=== PATIENT | female | born 1985 | race Caucasian/White ===

== ENCOUNTER 2017-08-21 12:20 | Observation (INO) | payer BC, OTHER, SELFPAY ==
[~2017-08-21] VITALS: Ht 160 cm; Wt 117.9 kg
[2017-08-21] MEDS ORDERED: DEMEROL IM STA ×2 (13:04→16:20)
[2017-08-21] MEDS ORDERED: ZOFRAN ODT SL STA (13:04)
[2017-08-21] MEDS ORDERED: ZOFRAN ODT ONE (13:18)
[2017-08-21] MEDS ORDERED: DEMEROL ONE (13:19)
[2017-08-21 14:16] LABS: BILIRUBIN,URINE NEGATIVE (NEGATIVE); UROBILINOGEN,URINE NORMAL (NEGATIVE)
[2017-08-21 14:18] LABS: APPEARANCE,URINE CLEAR (CLEAR); UA COLOR YELLOW (YELLOW)
[2017-08-21 14:29] LABS: BASOPHIL # 0.1 10^3/uL (0.0-0.1); BASOPHIL % 0.4 % (0.0-0.2); EOSINOPHIL # 0.2 10^3/uL (0.0-0.2); HEMOGLOBIN 13.6 g/dL (12.0-15.0); LYMPHOCYTES # 3.2 10^3/uL (1.0-4.8); MEAN CELL HGB CONCENTRATION 32.5 g/dL (33-37); MEAN CORP VOLUME 86.4 fL (78-100); MEAN PLATELET VOLUME 8.2 fL (7.8-11.0); MONOCYTES # 1.1 10^3/uL (0.3-0.8); MONOCYTES % 6.9 % (5.0-12.0); NEUTROPHIL # 10.8 10^3/uL (1.8-7.7); NEUTROPHILS % 70.2 % (41.0-85.0); WHITE BLOOD CELL 15.3 10^3/uL (4.5-11.0)
--- NOTE | 2017-08-21 17:58 | NUR ---
Dr. Valentina Montgomery is at patient bedside
[2017-08-21] MEDS ORDERED: TORADOL IM STA (18:15)
[2017-08-21] MEDS ORDERED: PHENERGAN PO PRN (18:30)
[2017-08-21] MEDS ORDERED: AMBIEN PO PRN (18:30)
[2017-08-21] MEDS ORDERED: MILK OF MAGNESIA PO PRN (18:30)
[2017-08-21] MEDS ORDERED: ZOFRAN ODT SL PRN (18:30)
[2017-08-21] MEDS ORDERED: NORCO 7.5MG PO PRN ×2 (18:30)
[2017-08-21] MEDS ORDERED: DEMEROL IV PRN (18:30)
[2017-08-21] MEDS ORDERED: PHENERGAN IV PRN (18:30)
[2017-08-21] MEDS ORDERED: ZOFRAN IV PRN (18:30)
--- NOTE | 2017-08-21 18:30 | ER.PDOC ---
General Chief Complaint: Lower Back Pain or Injury Stated Complaint: BACK INJURY Time seen by MD: 18:15 Source: patient Exam Limitations: no limitations History of Present Illness Problems: (1) 6 weeks gestation of ICD Code: Z3A.01 - Less than 8 weeks gestation of SNOMED: 76623731 (2) Lower back pain Onset Date: ~ 08/21/2017 Status: Acute ICD Code: M54.5 - Low back pain SNOMED: 401395707 (3) Pre-existing hypertension affecting in first trimester ICD Code: O10.911 - Unspecified pre-existing hypertension complicating , first trimester SNOMED: 94240711, 82015096, 462304046 Allergies: Coded Allergies: No Known Allergies (Unverified , 08/21/17) Vital Signs First Vital Signs Date Time Temp Pulse Resp B/P (MAP) Pulse Ox O2 Delivery O2 Flow Rate FiO2 08/21/17 12:56 98.2 106 18 99 08/21/17 12:59 161/104 (123) Last Vital Signs Date Time Temp Pulse Resp B/P (MAP) Pulse Ox O2 Delivery O2 Flow Rate FiO2 08/21/17 17:01 98.4 75 20 125/75 (92) 96 Past Medical History Medical History: hypertension (Not currently taking her HCTZ 50mg's PO QD X approx 2 weeks) Surgical History: no surgical history LMP (females 10-50): Social History Smoking: non-smoker Drug Use: marijuana Physical Exam General Appearance: No Apparent Distress Respiratory: lungs clear Cardiovascular: Regular Rate, Rhythm Gastrointestinal: Other Back: No CVA Tenderness Extremities: Normal Range of Motion, Non-Tender Results/Orders Results/Orders Laboratory Tests Test 08/21/17 14:10 08/21/17 14:30 White Blood Count 15.3 10^3/uL (4.5-11.0) Red Blood Count 4.85 10^6/uL (4.00-5.20) Hemoglobin 13.6 g/dL (12.0-15.0) Hematocrit 41.9 % (36.0-46.0) Mean Corpuscular Volume 86.4 fL (78-100) Mean Corpuscular Hemoglobin 28.0 pg (26-34) Mean Corpuscular Hemoglobin Concent 32.5 g/dL (33-37) Red Cell Distribution Width 14.0 % (11.5-14.5) Platelet Count 431 10^3/uL (150-400) Mean Platelet Volume 8.2 fL (7.8-11.0) Neutrophils (%) (Auto) 70.2 % (41.0-85.0) Lymphocytes (%) (Auto) 21.0 % (24.0-44.0) Monocytes (%) (Auto) 6.9 % (5.0-12.0) Neutrophils # (Auto) 10.8 10^3/uL (1.8-7.7) Lymphocytes # (Auto) 3.2 10^3/uL (1.0-4.8) Monocytes # (Auto) 1.1 10^3/uL (0.3-0.8) Absolute Immature Granulocyte (auto 0.07 10^3 u/L (0-2) Eosinophils % 1.0 % (0.0-5.0) Basophils % 0.4 % (0.0-0.2) Basophils # 0.1 10^3/uL (0.0-0.1) Eosinophil Count 0.2 10^3/uL (0.0-0.2) Urine Collection Type VOID Urine Color YELLOW (YELLOW) Urine Appearance CLEAR (CLEAR) Urine Bilirubin NEGATIVE MG/DL (NEGATIVE) Urine Ketones NEGATIVE (NEGATIVE) Urine Specific [place] 1.010 (1.005-1.035) Urine pH 6 (5.0-6.0) Urine Protein NEGATIVE (NEGATIVE) Urine Urobilinogen NORMAL (NEGATIVE) Urine Nitrate NEGATIVE (NEGATIVE) Urine Leukocyte Esterase NEGATIVE (NEGATIVE) Urine Blood NEGATIVE (NEGATIVE) Urine Glucose NORMAL (NEGATIVE) Percent Immature Gran (Cell Imm) 0.50 % (0.00-0.50) Prothrombin Time 10.7 SEC (9.8-11.9) Prothrombin Time INR (Non-Therap) 1.0 Activated Partial Thromboplast Time 23.8 SEC (24.67-30.72) Sodium Level 137 mmol/L (132-145) Potassium Level 3.7 mmol/L (3.6-5.2) Chloride Level 106.0 mmol/L (96-109) Carbon Dioxide Level 23.0 mmol/L (20.0-32) Anion Gap 11.7 Blood Urea Nitrogen 9 mg/dL (7-18) Creatinine 0.80 mg/dL (0.59-1.40) Estimated GFR () 100.0 (>/=60) BUN/Creatinine Ratio 11.0 Glucose Level 93 mg/dL (70-110) Calcium Level 9.0 mg/dL (8.4-10.5) Total Bilirubin 0.5 mg/dL (0.2-1.0) Aspartate Amino Transf (AST/SGOT) 12 U/L (0-35) Alanine Aminotransferase (ALT/SGPT) 19 U/L (12-78) Alkaline Phosphatase 64 U/L (50-136) Total Protein 7.2 g/dL (6.4-8.2) Albumin 3.6 g/dL (3.4-5.0) Globulin 3.6 Human Chorionic Gonadotropin, Quant 4585 mIU/mL Administered Medications Medications (Trade) Dose Ordered Sig/Faiza Route PRN Reason Start Time Stop Time Status Last Admin Dose Admin Meperidine HCl (Demerol) 100 mg STAT STAT IM 08/21/17 13:04 08/21/17 13:05 DC 08/21/17 13:25 Ondansetron HCl (Zofran Odt) 4 mg STAT STAT SL 08/21/17 13:04 08/21/17 13:05 DC 08/21/17 13:25 Meperidine HCl (Demerol) 50 mg STAT STAT IM 08/21/17 16:20 08/21/17 16:21 DC 08/21/17 16:50 Course Blood Pressure Systolic: 125 Blood Pressure Diastolic: 75 Blood Pressure Mean: 92 Departure Time of Disposition: 18:30 Disposition: 09 ADMITTED INPATIENT Impression: Primary Impression: Low back pain Condition: Stable Referrals: PCP,UNKNOWN (PCP) PRIMARY CARE PROVIDER Comments Pt will be admitted as an OBS patient. We will observe her BPs overnight as well. Duration or Time Spent with Pa: 15 mins PELON MAYES MD Aug 21, 2017 18:30
[2017-08-21] MEDS ORDERED: TORADOL ONE (19:13)
--- NOTE | 2017-08-21 20:30 | NUR ---
This RN to ER to bring patient to floor. Report received. Patient transferred to room 325. States with a LMP of 07/09/17. States she is "6 weeks ". Denies any abdominal cramping or any bleeding. States back pain began around 1200 today and has not let up. Describes pain as "Sharp and it moves across my whole entire back. It feels like I pulled a muscle and only worsens when moving". Denies any drug use. States is an "occasional smoker that smokes maybe 3 cigarettes per day". States a hx of possible chtn and has recently stopped taking a "water pill to take of fluid". Pt unsure of name of medication. Denies any other home medications. Assisted to bathroom to change into gown. Assisted to bed.
--- NOTE | 2017-08-21 21:30 | NUR ---
IV covered and taped up. Patient assisted to shower at this time. Education regarding emergency call cord and to call out for assistance if needed. Pt verbalized understanding.
--- NOTE | 2017-08-21 22:43 | NUR ---
Plan of care initiated and reviewed with patient and family. Verbalized understanding.
[2017-08-21] MEDS ORDERED: AMBIEN ONE (23:00)
--- NOTE | 2017-08-21 23:00 | NUR ---
Patient states "My pain is better. I am just ready to go to sleep. Ambian given to patient at this time per request. Denies any other needs.
--- NOTE | 2017-08-22 00:14 | NUR ---
Patient in bed with eyes closed. RR even and unlabored. Call light within reach. No distress noted at this time.
--- NOTE | 2017-08-22 03:13 | NUR ---
Patient in bed with eyes closed. RR even and unlabored. Call light within reach.
[2017-08-22 05:21] VITALS: BP 138/82
--- NOTE | 2017-08-22 05:25 | NUR ---
Patient in bed with eyes closed laying on stomach. Vitals taken. States pain is "still there but way better than yesterday". Denies needs for pain medication. Bed in low position. Siderails up x2. Call light within reach. Denies any needs.
--- NOTE | 2017-08-22 08:58 | NUR ---
Resting Breakfast tray served. Pt resting on right side asleep. Respirations non labored and no distress noted.
--- NOTE | 2017-08-22 09:07 | NUR ---
Resting Pt continues to be resting with eyes closed left side lateral. Snoring heard and respiration non labored. No distress noted.
--- NOTE | 2017-08-22 09:58 | NUR ---
Pt awaking and alert sitting up in bed talking with family. Pt ate her breakfast. Pt c/o lower back pain rated at 4/10. Nurse offered [place] for pain. Pt states ''I don't like to take strong pain medications.''
[2017-08-22 09:59] VITALS: BP 145/82
--- NOTE | 2017-08-22 10:00 | NUR ---
Phone Dr. Montgomery Phone call made to Dr. Montgomery and notified of pt rating pain at 4/10 but not wanting to take [place]. Tylenol 1000mg PO ordered for pt's pain.
[2017-08-22] MEDS ORDERED: TYLENOL PO ONE (10:03)
[2017-08-22] MEDS ORDERED: TYLENOL PO PRN (10:30)
--- NOTE | 2017-08-22 10:30 | NUR ---
Dr. Montgomery here Dr. Montgomery here to see pt.
--- NOTE | 2017-08-22 10:40 | NUR ---
discharghing pt home. Pt to follow up with OB and/or primary care for blood pressure check. Pt voiced understanding.
--- NOTE | 2017-08-22 10:53 | PRM.DC ---
Discharge Summary Date of Discharge: Aug 22, 2017 Time of Request to Discharge: 10:45 Reason for Visit: EXCRUCIATING LOWER BACK PAIN Additional Comments Teresita Knox is a morbidly obese 32yo WF with no formal PNC as of yet who was admitted as an observation patient at 6 0/7 weeks, with diagnosis chronic HTN and severe lower back pain. She had difficulty sleeping at a relative's house the night prior (tried to sleep on three different couches/beds ) and so she thinks that that is why her back is hurting her. It is more of musculoskeletal pain. I gave her a shot of Toradol 30mg's IV X 1 last night. Her BPs have been 140s/80s here in-house, and she is stable for discharge to home right now. Patient History: Patient reports no known family medical history. History Present Illness: No Active Prescriptions or Reported Meds Sepsis Evaluation @ Discharge Course Blood Pressure Systolic: 145 Blood Pressure Diastolic: 82 Blood Pressure Mean: 103 Plan Problems: (1) 6 weeks gestation of ICD Code: Z3A.01 - Less than 8 weeks gestation of SNOMED: 50129653 (2) Pre-existing hypertension affecting in first trimester ICD Code: O10.911 - Unspecified pre-existing hypertension complicating , first trimester SNOMED: 30344832, 45222887, 302529043 (3) Lower back pain Onset Date: ~ 08/21/2017 Status: Acute ICD Code: M54.5 - Low back pain SNOMED: 167993503 Discharge Date: Aug 22, 2017 Dicharge DX: IUP @ 6 0/7 wks; chronic HTN; severe lower back pain Discharge Disposition: Stable Plan I would like this patient to F/U with her [facility] in [place], [facility] tomorrow morning, so that her blood pressures can be monitored closely. Pt took Tylenol for her lower back pain this morning. She received an Ambien 10mg's to help her sleep last night. PELON MAYES MD Aug 22, 2017 10:52
[2017-08-22 10:56] VITALS: BP 145/82
--- NOTE | 2017-08-22 11:00 | NUR ---
Discharge instructions Discharge instructions given verbally with written material. Pt voiced and signed understanding. Pt ambulated off unit in stable condition with spouse.
--- NOTE | 2017-08-26 09:08 | DIREP ---
PROCEDURE: US OB 1ST TRI TRANS ABD COMPARISON: None. INDICATIONS: BACK PAIN TECHNIQUE: Endovaginal pelvic ultrasound examinations were performed. FINDINGS: GESTATIONAL SAC: Present and normal appearing. PLACENTA: No subchorionic hemorrhage. AMNIOTIC FLUID: Volume is within normal limits. POLE: Poorly visualize, 0.36 cm. CARDIAC ACTIVITY: Not identified. UTERUS: Normal. OVARIES: Not visualized. CUL-DE-SAC: Normal. SONOGRAPHIC AGE: 6 weeks 0 days. OTHER: Negative. Uterus: 8.4 x 5.6 x 5.3 cm [place] Rump Length: 0.36 cm (6 weeks, 0 days) CONCLUSION: Intrauterine . pole not well visualized. No cardiac activity yet identified. Correlate with serial beta HCG and sonographic follow-up, as clinically indicated. DICTATED BY: BARBARA DOMÍNGUEZ III, MD ON 08/21/2017 AT 05:45 PM ELECTRONICALLY SIGNED BY: BARBARA DOMÍNGUEZ III, MD ON 08/21/2017 AT 05:50 PM [facility]
== END 2017-08-22 11:00 | disposition home or self-care (01) ==
LOC: ER 12:20 → LND 18:24 → INTOOBSV 18:24
PROVIDERS: ADMIT Hospitalist; ATTEND Hospitalist
DX: O26.891 Other specified pregnancy related conditions, first trimester (principal); M54.5 Low back pain; O10.911 Unspecified pre-existing hypertension complicating pregnancy, first trimester; Z3A.01 Less than 8 weeks gestation of pregnancy
CPT/HCPCS: 36415; 76801; 76817; 80053; 81002; 84702; 85025; 85610; 85730; 86900; 96372 ×3; 99285; A9150; G0378 ×17; J1885; J2175; J3490; Q0162

== ENCOUNTER 2022-03-18 01:21 | Emergency (ER) | payer SELFPAY ==
[~2022-03-18] VITALS: Ht 160 cm; Wt 106.6 kg
[2022-03-18 02:18] VITALS: BP 178/109
[2022-03-18] MEDS ORDERED: TRIPLE ANTIBIOTIC OINTMENT TP ONE (02:48)
--- NOTE | 2022-03-18 02:55 | ER.PDOC ---
General Chief Complaint: Requesting Medical Care Stated Complaint: RASH/BLISTERS Time seen by MD: 02:50 Source: patient Exam Limitations: no limitations History of Present Illness Initial Comments Rash to the face, upper and lower extremities and a blister on left foot for about 2 days. Rash is itchy. Severity: moderate Location: facial, RUE, LUE, RLE, LLE Quality: itchy Identified Cause: no Allergies: Coded Allergies: No Known Allergies (Unverified , 08/21/17) Home Meds No Active Prescriptions or Reported Meds Past Medical History Medical History: no pertinent history, other Surgical History: other Family History Significant Family History: no pertinent family hx Social History Smoking: non-smoker Alcohol Use: none Drug Use: marijuana Constitutional: no symptoms reported EENTM: no symptoms reported Respiratory: no symptoms reported Cardiovascular: no symptoms reported Gastrointestinal: no symptoms reported Skin: see HPI All Other Systems: Reviewed and Negative Physical Exam General Appearance: alert, no distress Skin: skin rash Location: face, RUE, LUE, RLE, LLE Character: maculopapular Extremities: other (Small blister dorsal aspect of left foot) EENT: eyes nml inspection, lips/gums nml, pharynx nml Neck: trachea midline, no swelling Respiratory: no resp. distress, breath sounds nml CVS: reg. rate & rhythm, heart sounds nml Abdomen: non-tender, no organomegaly NEURO/PSYCH: oriented x 3, CN's nml as tested, motor nml, sensation nml, mood/affect nml Results/Orders Results/Orders Orders - MARIA DE JESUS LORD MD Neomycin/Bacitracin/Polymyxinb (Triple A (03/18/22 02:48) Vital Signs Date Time Temp Pulse Resp B/P (MAP) Pulse Ox O2 Delivery O2 Flow Rate FiO2 03/18/22 02:18 98.9 93 18 178/109 (132) 99 Room Air* 0 21 03/18/22 02:18 98.9 93 18 99 03/18/22 02:18 98.9 93 18 Progress Progress Blister popped open, cleaned, Neosporin and dressing applied. I explained to the patient that few spotted rash on the face, upper and lower extremities which are exposed parts of the body appear to me to be insect bite. ER DEPART Departure Time of Disposition: 02:52 Disposition: 01 HOME / SELF CARE / HOMELESS Impression: Primary Impression: Skin rash Additional Impression: Blister of foot, left Condition: Improved Referrals: PCP,UNKNOWN (PCP) PRIMARY CARE PROVIDER Additional Instructions: Clean wound daily with soap and water and apply Neosporin and a dressing Benadryl Follow-up with your PCP in 3 to 5 days Return to ED if worsening or concerns Scripts No Active Prescriptions or Reported Meds Duration or Time Spent with Pa: 10 min Problem Qualifiers Additional Impression: Blister of foot, left Encounter type: initial encounter Qualified Codes: S90.822A - Blister (nonthermal), left foot, initial encounter MARIA DE JESUS LORD MD Mar 18, 2022 02:55
[2022-03-18 03:07] VITALS: BP 168/92
== END 2022-03-18 03:08 | disposition home or self-care (01) ==
LOC: ER 01:21
DX: S90.822A Blister (nonthermal), left foot, initial encounter (principal); F12.90 Cannabis use, unspecified, uncomplicated; R21 Rash and other nonspecific skin eruption; X58.XXXA Exposure to other specified factors, initial encounter; Y93.89 Activity, other specified; Y92.89 Other specified places as the place of occurrence of the external cause; Y99.8 Other external cause status
CPT/HCPCS: 99282